=== PATIENT | male | born 1950 | race Caucasian/White ===

== ENCOUNTER 2018-03-29 19:56 | Inpatient (IN) ==
[2018-03-29 21:34] LABS: Basophils % 0.2 % (0.0-0.8); Eosinophils # 0.1 10*3/uL (0.0-0.87); Eosinophils % 0.9 % (0.00-10.9); Hematocrit 38.3 VOL% (42.0-52.0); Hemoglobin 12.7 GM/DL (14.0-18.0); Immature Granulocytes % 0.3 %; Immature Granulocytes Absolute 0.02 #; Lymphocytes # 1.1 10*3/uL (1.4-4.0); Lymphocytes % 16.9 % (21.2-54.2); Mean Corpuscular HGB Conc 33.2 GM/DL (32-36); Mean Corpuscular Hemoglobin 30 PG (27-34); Mean Corpuscular Volume 90.5 FL (87-102); Mean Platelet Volume 10.7 FL (9.6-12.0); Monocytes # 0.6 10*3/uL (0.11-0.8); Monocytes % 8.9 % (1.7-12.7); Neutrophils # 4.7 10*3/uL (1.4-7.4); Neutrophils % 72.8 % (38.7-73.9); Platelet Count 207 T/CUMM (130-400); Red Blood Count 4.23 MC/CUMM (3.8-5.5); Red Cell Distribution Width 14.8 % (9.3-17.3); White Blood Count 6.5 T/CUMM (4-12)
[2018-03-29 21:57] LABS: Albumin 3.4 G/DL (3.4-5.0); Calcium 8.5 MG/DL (8.5-10.1); Osmolality,Calculated 292.1 MOS/KG (273-304); Potassium 4.4 MMOL/L (3.5-5.1); Total Protein 6.7 G/DL (6.4-8.3)
[2018-03-29] MEDS ORDERED: METOPROLOL TARTRATE 5 MG/5 ML VIAL IV STA (22:44)
[2018-03-29] MEDS ORDERED: ACETAMINOPHEN 500 MG TABLET PO STA (22:44)
[2018-03-29 23:25] LABS: INR 1.1; PT Patient Result 11.2 SECS
[2018-03-29] MEDS ORDERED: ASPIRIN CHEW 81 MG TABLET PO STA (23:49)
[2018-03-29] MEDS ORDERED: ONDANSETRON 4 MG/2 ML VIAL IV ONE (23:49)
[2018-03-29] MEDS ORDERED: MORPHINE 4 MG/1 ML VIAL IV STA (23:49)
[2018-03-30] MEDS ORDERED: HEPARIN DRIP 25,000 UNITS/500 ML PREMIX IV SCH (03:00)
[2018-03-30] MEDS ORDERED: MAGNESIUM SULF RIDER 4 GM in PREMIX 1 EACH IV PRN (03:10)
[2018-03-30] MEDS ORDERED: ONDANSETRON 4 MG/2 ML VIAL IV PRN (03:10)
[2018-03-30 03:44] LABS: Partial Thromboplastin Time 27.3 SECS (0-40)
[2018-03-30] MEDS: HEPARIN DRIP 25,000 UNITS/500 ML PREMIX IV SCH ×2 (04:06→20:22)
[2018-03-30] MEDS: MAGNESIUM SULF RIDER 2 GM in PREMIX 1 EACH IV PRN (04:13)
[2018-03-30] MEDS ORDERED: HEPARIN 5,000 UNIT/1 ML VIAL IV ONE (09:00)
[2018-03-30] MEDS ORDERED: MORPHINE 4 MG/1 ML VIAL IM PRN (11:07)
[2018-03-30] MEDS: MORPHINE 4 MG/1 ML VIAL IV PRN ×3 (11:48→20:22)
[2018-03-30] MEDS: CARVEDILOL 6.25 MG TABLET PO SCH ×2 (12:31→16:18)
[2018-03-30] MEDS: ISOSORBIDE MONONITRATE 30 MG TABLET PO SCH (12:31)
[2018-03-30] MEDS: CLOPIDOGREL 75 MG TABLET PO SCH (12:31)
[2018-03-30] MEDS ORDERED: cefTRIAXone 1,000 MG VIAL IV SCH (13:30)
[2018-03-30] MEDS: cefTRIAXone 1,000 MG in SYRINGE 1 EACH IV SCH (13:46)
[2018-03-30] MEDS: TAMSULOSIN 0.4 MG CAPSULE PO SCH ×2 (13:47→20:21)
[2018-03-30] MEDS: PREGABALIN 100 MG CAPSULE PO SCH ×2 (13:47→20:21)
[2018-03-30] MEDS ORDERED: PREGABALIN 100 MG CAPSULE PO SCH (15:00)
[2018-03-30] MEDS: BENZONATATE 100 MG CAPSULE PO SCH ×2 (16:09→20:22)
[2018-03-30] MEDS: INSULIN LISPRO 100 UNIT/ML SUBCUT SCH ×2 (16:17→20:21)
[2018-03-30] MEDS: QUEtiapine XR 50 MG TABLET PO SCH (20:21)
[2018-03-30] MEDS: DULoxetine 30 MG CAPSULE PO SCH (20:21)
[2018-03-31 03:59] LABS: Apearance,Urine CLEAR (Clear); Bilirubin,Urine Negative (Negative); Blood, Urine Negative (Negative); Glucose,Urine (UA) >=500 mg/dL (Negative); Ketones,Urine 5 mg/dL (Negative); Mucus,Urine Few /LPF (Occasional); Nitrite,Urine Negative (Negative); Protein,Urine 30 MG/DL; RBC,Urine <1 /HPF (0-4); Urine Color Yellow (Yellow); Urine Specific Gravity 1.028 (1.001-1.035); Urine Urobilinogen < 2.0 EU/DL (0.2-1.0); WBC,Urine 1 /HPF (0-6)
[2018-03-31] MEDS: HEPARIN DRIP 25,000 UNITS/500 ML PREMIX IV SCH ×2 (04:27→12:55)
[2018-03-31 06:03] LABS: Basophils % 0.4 % (0.0-0.8); Eosinophils # 0.1 10*3/uL (0.0-0.87); Eosinophils % 1.8 % (0.00-10.9); Hematocrit 34.8 VOL% (42.0-52.0); Hemoglobin 11.4 GM/DL (14.0-18.0); Immature Granulocytes % 0.4 %; Immature Granulocytes Absolute 0.02 #; Lymphocytes # 1.4 10*3/uL (1.4-4.0); Lymphocytes % 24.8 % (21.2-54.2); Mean Corpuscular HGB Conc 32.8 GM/DL (32-36); Mean Corpuscular Hemoglobin 30 PG (27-34); Mean Corpuscular Volume 90.9 FL (87-102); Mean Platelet Volume 10.3 FL (9.6-12.0); Monocytes # 0.5 10*3/uL (0.11-0.8); Monocytes % 9.4 % (1.7-12.7); Neutrophils # 3.5 10*3/uL (1.4-7.4); Neutrophils % 63.2 % (38.7-73.9); Platelet Count 185 T/CUMM (130-400); Red Blood Count 3.83 MC/CUMM (3.8-5.5); Red Cell Distribution Width 15.1 % (9.3-17.3); White Blood Count 5.6 T/CUMM (4-12)
[2018-03-31 06:39] LABS: Albumin 2.6 G/DL (3.4-5.0); Bilirubin,Total 0.9 MG/DL (0.2-1.0); Calcium 8.3 MG/DL (8.5-10.1); Osmolality,Calculated 285.4 MOS/KG (273-304); Potassium 3.5 MMOL/L (3.5-5.1); Risk Ratio 2.86; VLDL CHOLESTEROL 16.8 MG/DL
[2018-03-31] MEDS: INSULIN LISPRO 100 UNIT/ML SUBCUT SCH ×4 (07:40→20:14)
[2018-03-31] MEDS: ESCITALOPRAM 10 MG TABLET PO SCH (08:52)
[2018-03-31] MEDS: CLOPIDOGREL 75 MG TABLET PO SCH (08:52)
[2018-03-31] MEDS: TAMSULOSIN 0.4 MG CAPSULE PO SCH ×2 (08:52→20:15)
[2018-03-31] MEDS: ATORVASTATIN 80 MG TABLET PO SCH (08:52)
[2018-03-31] MEDS: DULoxetine 30 MG CAPSULE PO SCH ×2 (08:52→20:15)
[2018-03-31] MEDS: BENZONATATE 100 MG CAPSULE PO SCH ×3 (08:53→20:15)
[2018-03-31] MEDS: ISOSORBIDE MONONITRATE 30 MG TABLET PO SCH (08:53)
[2018-03-31] MEDS: CARVEDILOL 6.25 MG TABLET PO SCH ×2 (08:53→16:51)
[2018-03-31] MEDS: PREGABALIN 100 MG CAPSULE PO SCH ×2 (09:12→20:15)
[2018-03-31] MEDS ORDERED: ASPIRIN CHEW 81 MG TABLET PO ONE (11:31)
[2018-03-31] MEDS: cefTRIAXone 1,000 MG in SYRINGE 1 EACH IV SCH (12:55)
[2018-03-31] MEDS: QUEtiapine XR 50 MG TABLET PO SCH (20:15)
[2018-04-01 00:41] LABS: Basophils % 0.2 % (0.0-0.8); Eosinophils # 0.1 10*3/uL (0.0-0.87); Eosinophils % 3.1 % (0.00-10.9); Hematocrit 34.3 VOL% (42.0-52.0); Hemoglobin 11.3 GM/DL (14.0-18.0); Immature Granulocytes % 0.2 %; Immature Granulocytes Absolute 0.01 #; Lymphocytes # 1.2 10*3/uL (1.4-4.0); Lymphocytes % 29.4 % (21.2-54.2); Mean Corpuscular HGB Conc 32.9 GM/DL (32-36); Mean Corpuscular Hemoglobin 30 PG (27-34); Mean Platelet Volume 9.9 FL (9.6-12.0); Monocytes # 0.4 10*3/uL (0.11-0.8); Monocytes % 10.6 % (1.7-12.7); Neutrophils # 2.3 10*3/uL (1.4-7.4); Neutrophils % 56.5 % (38.7-73.9); Platelet Count 176 T/CUMM (130-400); Red Blood Count 3.81 MC/CUMM (3.8-5.5); Red Cell Distribution Width 14.9 % (9.3-17.3); White Blood Count 4.2 T/CUMM (4-12)
[2018-04-01 01:04] LABS: Calcium 8.3 MG/DL (8.5-10.1); Osmolality,Calculated 287.3 MOS/KG (273-304); Potassium 3.6 MMOL/L (3.5-5.1)
[2018-04-01] MEDS: HEPARIN DRIP 25,000 UNITS/500 ML PREMIX IV SCH (03:47)
[2018-04-01] MEDS ORDERED: diphenhydrAMINE CAP 50 MG CAPSULE PO ONE (08:00)
[2018-04-01] MEDS ORDERED: DIAZEPAM 5 MG TABLET PO ONE (08:00)
[2018-04-01] MEDS ORDERED: DIAZEPAM 5 MG TABLET ONE (08:02)
[2018-04-01] MEDS ORDERED: diphenhydrAMINE CAP 50 MG CAPSULE ONE (08:02)
[2018-04-01] MEDS ORDERED: HEPARIN/NACL 0.9% 2 UNITS/ML 1,000 ML IV ONE (08:07)
[2018-04-01] MEDS ORDERED: POTASSIUM CHLORIDE RIDER 10 MEQ in PREMIX 1 EACH IV PRN (08:13)
[2018-04-01] MEDS ORDERED: MAGNESIUM SULF RIDER 2 GM in PREMIX 1 EACH IV PRN (08:13)
[2018-04-01] MEDS: INSULIN LISPRO 100 UNIT/ML SUBCUT SCH ×4 (08:20→20:28)
[2018-04-01] MEDS ORDERED: LIDOCAINE 1%/EPI INJ 20 ML VIAL ONE (08:20)
[2018-04-01] MEDS: CARVEDILOL 6.25 MG TABLET PO SCH ×2 (08:30→18:56)
[2018-04-01] MEDS: CLOPIDOGREL 75 MG TABLET PO SCH (08:30)
[2018-04-01] MEDS: ISOSORBIDE MONONITRATE 30 MG TABLET PO SCH (08:30)
[2018-04-01] MEDS ORDERED: DEXTROSE 5% NACL 0.45% 1,000 ML IV SCH (08:30)
[2018-04-01] MEDS: ASPIRIN CHEW 81 MG TABLET PO SCH (08:30)
[2018-04-01] MEDS: TAMSULOSIN 0.4 MG CAPSULE PO SCH ×2 (12:12→20:28)
[2018-04-01] MEDS: BENZONATATE 100 MG CAPSULE PO SCH ×3 (12:12→20:28)
[2018-04-01] MEDS: ESCITALOPRAM 10 MG TABLET PO SCH (12:13)
[2018-04-01] MEDS: ATORVASTATIN 80 MG TABLET PO SCH (12:13)
[2018-04-01] MEDS: PREGABALIN 100 MG CAPSULE PO SCH ×2 (12:13→20:28)
[2018-04-01] MEDS: DULoxetine 30 MG CAPSULE PO SCH ×2 (12:13→20:28)
[2018-04-01] MEDS: cefTRIAXone 1,000 MG in SYRINGE 1 EACH IV SCH (13:59)
[2018-04-01] MEDS: QUEtiapine XR 50 MG TABLET PO SCH (20:28)
[2018-04-01] MEDS: MORPHINE 4 MG/1 ML VIAL IV PRN (21:18)
[2018-04-02 04:12] LABS: Basophils % 0.2 % (0.0-0.8); Eosinophils # 0.2 10*3/uL (0.0-0.87); Eosinophils % 3.4 % (0.00-10.9); Hematocrit 33.9 VOL% (42.0-52.0); Hemoglobin 11.1 GM/DL (14.0-18.0); Immature Granulocytes % 0.2 %; Immature Granulocytes Absolute 0.01 #; Lymphocytes # 1.4 10*3/uL (1.4-4.0); Lymphocytes % 28.5 % (21.2-54.2); Mean Corpuscular HGB Conc 32.7 GM/DL (32-36); Mean Corpuscular Hemoglobin 29 PG (27-34); Mean Corpuscular Volume 89.9 FL (87-102); Mean Platelet Volume 10.4 FL (9.6-12.0); Monocytes # 0.4 10*3/uL (0.11-0.8); Monocytes % 8.2 % (1.7-12.7); Neutrophils # 2.8 10*3/uL (1.4-7.4); Neutrophils % 59.5 % (38.7-73.9); Platelet Count 195 T/CUMM (130-400); Red Blood Count 3.77 MC/CUMM (3.8-5.5); Red Cell Distribution Width 14.8 % (9.3-17.3); White Blood Count 4.7 T/CUMM (4-12)
[2018-04-02 04:41] LABS: Calcium 8.6 MG/DL (8.5-10.1); Osmolality,Calculated 286.1 MOS/KG (273-304); Potassium 3.4 MMOL/L (3.5-5.1)
[2018-04-02 04:45] LABS: Troponin I 0.669 NG/ML (0.00-0.045)
[2018-04-02] MEDS: MAGNESIUM SULF RIDER 2 GM in PREMIX 1 EACH IV PRN (08:35)
[2018-04-02] MEDS: INSULIN LISPRO 100 UNIT/ML SUBCUT SCH ×4 (08:35→20:50)
[2018-04-02] MEDS ORDERED: NITROGLYCERIN SL 0.4 MG TABLET SL PRN (08:42)
[2018-04-02] MEDS: CARVEDILOL 6.25 MG TABLET PO SCH (09:15)
[2018-04-02] MEDS: RANOLAZINE 500 MG TABLET PO SCH ×2 (09:23→20:51)
[2018-04-02] MEDS: ASPIRIN CHEW 81 MG TABLET PO SCH (09:23)
[2018-04-02] MEDS: PREGABALIN 100 MG CAPSULE PO SCH ×2 (09:23→20:51)
[2018-04-02] MEDS: ESCITALOPRAM 10 MG TABLET PO SCH (09:23)
[2018-04-02] MEDS: ISOSORBIDE MONONITRATE 30 MG TABLET PO SCH (09:23)
[2018-04-02] MEDS: ATORVASTATIN 80 MG TABLET PO SCH (09:23)
[2018-04-02] MEDS: DULoxetine 30 MG CAPSULE PO SCH ×2 (09:23→20:51)
[2018-04-02] MEDS: TAMSULOSIN 0.4 MG CAPSULE PO SCH ×2 (09:23→20:51)
[2018-04-02] MEDS: TICAGRELOR 90 MG TABLET PO SCH ×2 (09:24→20:51)
[2018-04-02] MEDS: BENZONATATE 100 MG CAPSULE PO SCH ×3 (09:24→20:51)
[2018-04-02] MEDS: POTASSIUM CHLORIDE 20 MEQ TABLET PO PRN ×3 (09:56→14:46)
[2018-04-02] MEDS: POTASSIUM CHLORIDE 20 MEQ TABLET PO SCH (09:56)
[2018-04-02] MEDS ORDERED: CARVEDILOL 25 MG TABLET PO ONE (10:00)
[2018-04-02] MEDS: cefTRIAXone 1,000 MG in SYRINGE 1 EACH IV SCH (14:45)
[2018-04-02] MEDS: CARVEDILOL 12.5 MG TABLET PO SCH (16:33)
[2018-04-02] MEDS: INSULIN GLARGINE 100 UNIT/ML SUBCUT SCH (20:49)
[2018-04-02] MEDS: QUEtiapine XR 50 MG TABLET PO SCH (20:54)
[2018-04-02] MEDS: MORPHINE 4 MG/1 ML VIAL IV PRN (23:55)
[2018-04-03 05:02] LABS: Basophils % 0.4 % (0.0-0.8); Eosinophils # 0.1 10*3/uL (0.0-0.87); Eosinophils % 2.2 % (0.00-10.9); Hemoglobin 11.5 GM/DL (14.0-18.0); Immature Granulocytes % 0.2 %; Immature Granulocytes Absolute 0.01 #; Lymphocytes # 1.6 10*3/uL (1.4-4.0); Lymphocytes % 29.8 % (21.2-54.2); Mean Corpuscular HGB Conc 31.9 GM/DL (32-36); Mean Corpuscular Hemoglobin 29 PG (27-34); Mean Corpuscular Volume 91.4 FL (87-102); Mean Platelet Volume 10.2 FL (9.6-12.0); Monocytes # 0.4 10*3/uL (0.11-0.8); Monocytes % 7.4 % (1.7-12.7); Neutrophils # 3.2 10*3/uL (1.4-7.4); Platelet Count 207 T/CUMM (130-400); Red Blood Count 3.94 MC/CUMM (3.8-5.5); Red Cell Distribution Width 14.6 % (9.3-17.3); White Blood Count 5.4 T/CUMM (4-12)
[2018-04-03 05:27] LABS: Calcium 8.6 MG/DL (8.5-10.1); Potassium 3.9 MMOL/L (3.5-5.1)
[2018-04-03] MEDS: INSULIN LISPRO 100 UNIT/ML SUBCUT SCH ×2 (08:16→11:12)
[2018-04-03] MEDS: INSULIN GLARGINE 100 UNIT/ML SUBCUT SCH (08:43)
[2018-04-03] MEDS: POTASSIUM CHLORIDE 20 MEQ TABLET PO SCH (08:43)
[2018-04-03] MEDS: ESCITALOPRAM 10 MG TABLET PO SCH (08:43)
[2018-04-03] MEDS: PREGABALIN 100 MG CAPSULE PO SCH (08:43)
[2018-04-03] MEDS: RANOLAZINE 500 MG TABLET PO SCH (08:44)
[2018-04-03] MEDS: TAMSULOSIN 0.4 MG CAPSULE PO SCH (08:44)
[2018-04-03] MEDS: ASPIRIN CHEW 81 MG TABLET PO SCH (08:44)
[2018-04-03] MEDS: TICAGRELOR 90 MG TABLET PO SCH (08:44)
[2018-04-03] MEDS: ISOSORBIDE MONONITRATE 30 MG TABLET PO SCH (08:44)
[2018-04-03] MEDS: DULoxetine 30 MG CAPSULE PO SCH (08:44)
[2018-04-03] MEDS: ATORVASTATIN 80 MG TABLET PO SCH (08:44)
[2018-04-03] MEDS: CARVEDILOL 12.5 MG TABLET PO SCH (08:44)
[2018-04-03] MEDS: BENZONATATE 100 MG CAPSULE PO SCH (08:47)
[2018-04-03 09:30] VITALS: BP 151/89
== END 2018-04-03 13:40 | disposition home or self-care (01) | DRG 282 ==
LOC: N.ED 19:56 → N.EDINP 03-30 03:10 → SUATTDRO 03-30 03:10 → N.CC 03-30 03:34
PROVIDERS: ADMIT Family Medicine; ATTEND Family Medicine

== ENCOUNTER 2018-07-05 03:08 | Observation (INO) ==
[2018-07-05] MEDS ORDERED: NITROGLYCERIN 2% OINT 1 INCH/GM PACK TOP STA (03:18)
[2018-07-05] MEDS ORDERED: DEXTROSE 50% 25 GM/50 ML VIAL IV PRN (03:19)
[2018-07-05] MEDS ORDERED: MAGNESIUM SULF RIDER 4 GM in PREMIX 1 EACH IV PRN (03:19)
[2018-07-05] MEDS ORDERED: MAGNESIUM SULF RIDER 2 GM in PREMIX 1 EACH IV PRN (03:19)
[2018-07-05] MEDS ORDERED: GLUCAGON 1 MG VIAL IM PRN (03:19)
[2018-07-05] MEDS ORDERED: NITROGLYCERIN SL 0.4 MG TABLET SL PRN (09:10)
[2018-07-05 09:31] LABS: Basophils % 0.4 % (0.0-0.8); Eosinophils # 0.1 10*3/uL (0.0-0.87); Eosinophils % 1.4 % (0.00-10.9); Hematocrit 39.7 VOL% (42.0-52.0); Hemoglobin 12.3 GM/DL (14.0-18.0); Immature Granulocytes % 0.8 %; Immature Granulocytes Absolute 0.04 #; Lymphocytes # 1.4 10*3/uL (1.4-4.0); Mean Corpuscular Hemoglobin 29 PG (27-34); Mean Corpuscular Volume 92.5 FL (87-102); Monocytes # 0.4 10*3/uL (0.11-0.8); Monocytes % 8.1 % (1.7-12.7); Neutrophils % 60.3 % (38.7-73.9); Platelet Count 185 T/CUMM (130-400); Red Blood Count 4.29 MC/CUMM (3.8-5.5); Red Cell Distribution Width 14.6 % (9.3-17.3)
[2018-07-05] MEDS: ESCITALOPRAM 10 MG TABLET PO SCH (09:46)
[2018-07-05] MEDS: RANOLAZINE 500 MG TABLET PO SCH ×2 (09:46→20:26)
[2018-07-05] MEDS: ASPIRIN CHEW 81 MG TABLET PO SCH (09:46)
[2018-07-05] MEDS: POTASSIUM CHLORIDE 20 MEQ TABLET PO SCH (09:46)
[2018-07-05] MEDS: ATORVASTATIN 80 MG TABLET PO SCH (09:47)
[2018-07-05] MEDS: TICAGRELOR 90 MG TABLET PO SCH ×2 (09:47→20:26)
[2018-07-05 10:00] LABS: Calcium 9.1 MG/DL (8.5-10.1); Osmolality,Calculated 291.1 MOS/KG (273-304); Potassium 4.9 MMOL/L (3.5-5.1)
[2018-07-05 10:04] LABS: Albumin 3.1 G/DL (3.4-5.0); Bilirubin,Total 0.4 MG/DL (0.2-1.0); Osmolality,Calculated 292.1 MOS/KG (273-304); Potassium 4.9 MMOL/L (3.5-5.1); Total Protein 6.7 G/DL (6.4-8.3)
[2018-07-05] MEDS: INSULIN LISPRO 100 UNIT/ML SUBCUT SCH ×3 (12:13→20:27)
[2018-07-05] MEDS: INSULIN GLARGINE 100 UNIT/ML SUBCUT SCH ×2 (13:03→20:27)
[2018-07-05] MEDS: CARVEDILOL 12.5 MG TABLET PO SCH (16:34)
[2018-07-05] MEDS: MAGNESIUM CHLORIDE 64 MG TABLET PO SCH ×3 (18:35→20:26)
[2018-07-05] MEDS: DULoxetine 30 MG CAPSULE PO SCH (20:26)
[2018-07-06 05:10] LABS: Basophils % 0.3 % (0.0-0.8); Eosinophils # 0.1 10*3/uL (0.0-0.87); Eosinophils % 1.5 % (0.00-10.9); Hematocrit 41.5 VOL% (42.0-52.0); Hemoglobin 13.3 GM/DL (14.0-18.0); Immature Granulocytes % 0.3 %; Immature Granulocytes Absolute 0.02 #; Lymphocytes # 1.8 10*3/uL (1.4-4.0); Lymphocytes % 27.6 % (21.2-54.2); Mean Corpuscular Hemoglobin 29 PG (27-34); Mean Platelet Volume 10.2 FL (9.6-12.0); Monocytes # 0.6 10*3/uL (0.11-0.8); Neutrophils % 61.3 % (38.7-73.9); Platelet Count 217 T/CUMM (130-400); Red Blood Count 4.61 MC/CUMM (3.8-5.5); Red Cell Distribution Width 14.6 % (9.3-17.3); White Blood Count 6.6 T/CUMM (4-12)
[2018-07-06 05:29] LABS: Albumin 3.2 G/DL (3.4-5.0); Bilirubin,Total 0.7 MG/DL (0.2-1.0); Calcium 9.1 MG/DL (8.5-10.1); Osmolality,Calculated 284.4 MOS/KG (273-304); Potassium 4.6 MMOL/L (3.5-5.1); Total Protein 6.9 G/DL (6.4-8.3)
[2018-07-06] MEDS: INSULIN LISPRO 100 UNIT/ML SUBCUT SCH ×2 (07:55→12:08)
[2018-07-06] MEDS: INSULIN GLARGINE 100 UNIT/ML SUBCUT SCH (08:01)
[2018-07-06] MEDS: RANOLAZINE 500 MG TABLET PO SCH (08:02)
[2018-07-06] MEDS: POTASSIUM CHLORIDE 20 MEQ TABLET PO SCH (08:02)
[2018-07-06] MEDS: DULoxetine 30 MG CAPSULE PO SCH (08:02)
[2018-07-06] MEDS: ASPIRIN CHEW 81 MG TABLET PO SCH (08:02)
[2018-07-06] MEDS: CARVEDILOL 12.5 MG TABLET PO SCH (08:03)
[2018-07-06] MEDS: MAGNESIUM CHLORIDE 64 MG TABLET PO SCH (08:03)
[2018-07-06] MEDS: ATORVASTATIN 80 MG TABLET PO SCH (08:03)
[2018-07-06] MEDS: TICAGRELOR 90 MG TABLET PO SCH (08:05)
[2018-07-06] MEDS: ESCITALOPRAM 10 MG TABLET PO SCH (08:05)
[2018-07-06] MEDS ORDERED: ISOSORBIDE MONONITRATE 30 MG TABLET PO SCH (09:00)
[2018-07-06 12:19] VITALS: BP 166/81
== END 2018-07-06 04:00 | disposition home or self-care (01) ==
LOC: EDBD → EDUNIT# → N.ED 03:08 → N.EDINP 03:08 → N.ICU 03:48 → N.TELEN 13:25
PROVIDERS: ADMIT Family Medicine; ATTEND Family Medicine

== ENCOUNTER 2019-05-23 20:55 | Inpatient (IN) ==
[2019-05-23] MEDS ORDERED: ENOXAPARIN 100 MG/ML SYRINGE SUBCUT STA (21:22)
[2019-05-23] MEDS ORDERED: ONDANSETRON 4 MG/2 ML VIAL IV STA (21:22)
[2019-05-23] MEDS ORDERED: ALBUTEROL/IPRATROPIUM 3 ML NEB RESP TX STA (21:22)
[2019-05-23] MEDS ORDERED: methylPREDNISolone SOD SUC 125 MG/2 ML VIAL IV STA (21:22)
[2019-05-23 21:40] LABS: Basophils % 0.3 % (0.0-0.8); Eosinophils % 0.6 % (0.00-10.9); Hematocrit 38.5 VOL% (42.0-52.0); Hemoglobin 12.2 GM/DL (14.0-18.0); Immature Granulocytes % 0.5 %; Immature Granulocytes Absolute 0.03 #; Lymphocytes % 16.9 % (21.2-54.2); Mean Corpuscular HGB Conc 31.7 GM/DL (32-36); Mean Corpuscular Volume 90.4 FL (87-102); Mean Platelet Volume 11.1 FL (9.6-12.0); Monocytes % 5.7 % (1.7-12.7); Platelet Count 181 T/CUMM (130-400); Red Blood Count 4.26 MC/CUMM (3.8-5.5); Red Cell Distribution Width 16.6 % (9.3-17.3); White Blood Count 6.2 T/CUMM (4-12)
[2019-05-23 21:47] LABS: PT Patient Result 10.5 SECS (9.6-12.2)
[2019-05-23 22:10] LABS: Albumin 2.9 G/DL (3.4-5.0); Bilirubin,Total 0.9 MG/DL (0.2-1.0); Calcium 8.7 MG/DL (8.5-10.1); Osmolality,Calculated 293.8 MOS/KG (273-304); Total Protein 6.6 G/DL (6.4-8.3)
[2019-05-23] MEDS ORDERED: MAGNESIUM SULF RIDER 2 GM in PREMIX 1 EACH IV PRN (22:20)
[2019-05-23] MEDS ORDERED: MAGNESIUM SULF RIDER 4 GM in PREMIX 1 EACH IV PRN (22:20)
[2019-05-23] MEDS ORDERED: ONDANSETRON 4 MG/2 ML VIAL IV PRN (22:20)
[2019-05-23] MEDS ORDERED: GLUCAGON 1 MG VIAL IM PRN (22:20)
[2019-05-23] MEDS ORDERED: DEXTROSE 50% 25 GM/50 ML VIAL IV PRN (22:20)
[2019-05-23] MEDS ORDERED: POTASSIUM CHLORIDE 20 MEQ TABLET PO PRN (22:20)
[2019-05-24] MEDS: MORPHINE 4 MG/1 ML VIAL IV PRN (00:06)
[2019-05-24] MEDS: ALBUTEROL/IPRATROPIUM 3 ML NEB RESP TX SCH ×7 (00:12→23:29)
[2019-05-24] MEDS: INSULIN REGULAR 100 UNIT/ML SUBCUT SCH ×4 (00:12→17:06)
[2019-05-24] MEDS: methylPREDNISolone SOD SUC 40 MG/1 ML VIAL IV SCH ×3 (06:05→21:01)
[2019-05-24 06:07] LABS: Hematocrit 40.2 VOL% (42.0-52.0); Hemoglobin 12.8 GM/DL (14.0-18.0); Immature Granulocytes % 0.2 %; Immature Granulocytes Absolute 0.01 #; Lymphocytes # 0.6 10*3/uL (1.4-4.0); Lymphocytes % 13.5 % (21.2-54.2); Mean Corpuscular HGB Conc 31.8 GM/DL (32-36); Mean Platelet Volume 11.1 FL (9.6-12.0); Neutrophils % 83.3 % (38.7-73.9); Platelet Count 180 T/CUMM (130-400); Red Blood Count 4.42 MC/CUMM (3.8-5.5); Red Cell Distribution Width 16.2 % (9.3-17.3); White Blood Count 4.4 T/CUMM (4-12)
[2019-05-24 06:52] LABS: Albumin 2.9 G/DL (3.4-5.0); Bilirubin,Total 0.9 MG/DL (0.2-1.0); Calcium 9.3 MG/DL (8.5-10.1); Osmolality,Calculated 292.1 MOS/KG (273-304); Risk Ratio 3.11; Thyroid Stimulating Hormone 1.14 uIU/ml (0.358-3.74); Total Protein 7.8 G/DL (6.4-8.3); VLDL CHOLESTEROL 20.4 MG/DL
[2019-05-24] MEDS ORDERED: BENZONATATE 100 MG CAPSULE PO PRN (08:47)
[2019-05-24] MEDS ORDERED: INSULIN GLARGINE 100 UNIT/ML SUBCUT SCH (09:00)
[2019-05-24] MEDS ORDERED: PANTOPRAZOLE 40 MG TABLET PO SCH (09:00)
[2019-05-24] MEDS ORDERED: OMEPRAZOLE 40 MG PO SCH (09:30)
[2019-05-24] MEDS: INSULIN ASPART PROTAMINE/ASPART 70/30 100 UNIT/ML SUBCUT SCH ×2 (09:45→18:06)
[2019-05-24] MEDS: FUROSEMIDE 40 MG/4 ML VIAL IV SCH ×2 (09:46→16:37)
[2019-05-24] MEDS: glipiZIDE 10 MG TABLET PO SCH ×2 (09:47→20:50)
[2019-05-24] MEDS: PREGABALIN 100 MG CAPSULE PO SCH ×3 (09:47→20:50)
[2019-05-24] MEDS: ENOXAPARIN 120 MG/0.8 ML SYRINGE SUBCUT SCH ×2 (09:47→20:55)
[2019-05-24] MEDS: MAGNESIUM CHLORIDE 64 MG TABLET PO SCH (09:47)
[2019-05-24] MEDS: PANTOPRAZOLE 40 MG TABLET PO SCH (09:47)
[2019-05-24] MEDS: DULoxetine 30 MG CAPSULE PO SCH ×2 (09:47→20:50)
[2019-05-24] MEDS: RANOLAZINE 500 MG TABLET PO SCH ×2 (09:47→20:50)
[2019-05-24] MEDS: ESCITALOPRAM 10 MG TABLET PO SCH (09:48)
[2019-05-24] MEDS: OLANZapine 5 MG TABLET PO SCH (09:48)
[2019-05-24] MEDS: ISOSORBIDE MONONITRATE 30 MG TABLET PO SCH (09:48)
[2019-05-24] MEDS: TAMSULOSIN 0.4 MG CAPSULE PO SCH ×2 (09:48→20:50)
[2019-05-24] MEDS: ASPIRIN CHEW 81 MG TABLET PO SCH (09:48)
[2019-05-24] MEDS: POTASSIUM CHLORIDE 20 MEQ TABLET PO SCH (09:48)
[2019-05-24] MEDS: ATORVASTATIN 80 MG TABLET PO SCH (09:48)
[2019-05-24] MEDS: DONEPEZIL 10 MG TABLET PO SCH ×2 (09:48→20:50)
[2019-05-24] MEDS: cephALEXin 500 MG CAPSULE PO SCH ×2 (09:48→20:50)
[2019-05-24] MEDS: SODIUM CHLORIDE 0.9% 1,000 ML IV SCH ×2 (11:23→22:11)
[2019-05-24 15:14] LABS: CKMB % 4.9 %
[2019-05-24 15:20] LABS: Troponin I 3.7 NG/ML (0.00-0.045)
[2019-05-24] MEDS: carvediloL 12.5 MG TABLET PO SCH (16:37)
[2019-05-24] MEDS: QUEtiapine XR 50 MG TABLET PO SCH (20:50)
[2019-05-24] MEDS: INSULIN GLARGINE 100 UNIT/ML SUBCUT SCH (21:00)
[2019-05-25] MEDS: INSULIN REGULAR 100 UNIT/ML SUBCUT SCH ×4 (01:02→18:15)
[2019-05-25] MEDS: ALBUTEROL/IPRATROPIUM 3 ML NEB RESP TX SCH ×6 (02:53→23:43)
[2019-05-25] MEDS: methylPREDNISolone SOD SUC 40 MG/1 ML VIAL IV SCH ×3 (06:19→21:21)
[2019-05-25] MEDS: glipiZIDE 10 MG TABLET PO SCH ×2 (08:58→20:47)
[2019-05-25] MEDS: ESCITALOPRAM 10 MG TABLET PO SCH (08:59)
[2019-05-25] MEDS: OLANZapine 5 MG TABLET PO SCH (08:59)
[2019-05-25] MEDS: DULoxetine 30 MG CAPSULE PO SCH ×2 (08:59→20:47)
[2019-05-25] MEDS: POTASSIUM CHLORIDE 20 MEQ TABLET PO SCH (08:59)
[2019-05-25] MEDS: carvediloL 12.5 MG TABLET PO SCH ×2 (08:59→16:25)
[2019-05-25] MEDS: PREGABALIN 100 MG CAPSULE PO SCH ×3 (09:00→20:47)
[2019-05-25] MEDS: ISOSORBIDE MONONITRATE 30 MG TABLET PO SCH (09:00)
[2019-05-25] MEDS: cephALEXin 500 MG CAPSULE PO SCH ×2 (09:01→20:46)
[2019-05-25] MEDS: ASPIRIN CHEW 81 MG TABLET PO SCH (09:01)
[2019-05-25] MEDS: MAGNESIUM CHLORIDE 64 MG TABLET PO SCH (09:01)
[2019-05-25] MEDS: RANOLAZINE 500 MG TABLET PO SCH ×2 (09:04→21:21)
[2019-05-25] MEDS: FUROSEMIDE 40 MG/4 ML VIAL IV SCH ×2 (09:04→16:25)
[2019-05-25] MEDS: DONEPEZIL 10 MG TABLET PO SCH ×2 (09:04→20:47)
[2019-05-25] MEDS: ATORVASTATIN 80 MG TABLET PO SCH (09:04)
[2019-05-25] MEDS: TAMSULOSIN 0.4 MG CAPSULE PO SCH ×2 (09:04→20:47)
[2019-05-25] MEDS: INSULIN ASPART PROTAMINE/ASPART 70/30 100 UNIT/ML SUBCUT SCH ×2 (09:05→21:22)
[2019-05-25] MEDS: ENOXAPARIN 120 MG/0.8 ML SYRINGE SUBCUT SCH ×2 (09:05→20:47)
[2019-05-25] MEDS: PANTOPRAZOLE 40 MG TABLET PO SCH (09:05)
[2019-05-25] MEDS ORDERED: POTASSIUM CHLORIDE RIDER 10 MEQ in PREMIX 1 EACH IV PRN (10:09)
[2019-05-25] MEDS ORDERED: MAGNESIUM SULF RIDER 2 GM in PREMIX 1 EACH IV PRN (10:09)
[2019-05-25] MEDS: QUEtiapine XR 50 MG TABLET PO SCH (20:47)
[2019-05-25] MEDS: INSULIN GLARGINE 100 UNIT/ML SUBCUT SCH (21:22)
[2019-05-25] MEDS: SODIUM CHLORIDE 0.9% 1,000 ML IV SCH (23:00)
[2019-05-26] MEDS: INSULIN REGULAR 100 UNIT/ML SUBCUT SCH ×2 (01:08→06:04)
[2019-05-26] MEDS: ALBUTEROL/IPRATROPIUM 3 ML NEB RESP TX SCH ×2 (03:55→07:27)
[2019-05-26 05:11] LABS: Hematocrit 35.7 VOL% (42.0-52.0); Hemoglobin 11.2 GM/DL (14.0-18.0); Immature Granulocytes % 0.3 %; Immature Granulocytes Absolute 0.03 #; Lymphocytes # 0.8 10*3/uL (1.4-4.0); Lymphocytes % 9.3 % (21.2-54.2); Mean Corpuscular HGB Conc 31.4 GM/DL (32-36); Mean Corpuscular Volume 91.5 FL (87-102); Mean Platelet Volume 11.3 FL (9.6-12.0); Monocytes % 5.6 % (1.7-12.7); NRBC # 0.04 10*3/uL; Neutrophils % 84.8 % (38.7-73.9); Platelet Count 200 T/CUMM (130-400); Red Cell Distribution Width 16.2 % (9.3-17.3); White Blood Count 8.7 T/CUMM (4-12)
[2019-05-26 05:33] LABS: Calcium 8.9 MG/DL (8.5-10.1); Osmolality,Calculated 306.4 MOS/KG (273-304)
[2019-05-26] MEDS ORDERED: DIAZEPAM 5 MG TABLET PO ONE (06:00)
[2019-05-26] MEDS ORDERED: diphenhydrAMINE CAP 25 MG CAPSULE PO ONE (06:00)
[2019-05-26] MEDS: methylPREDNISolone SOD SUC 40 MG/1 ML VIAL IV SCH (06:04)
[2019-05-26] MEDS: NITROGLYCERIN SL 0.4 MG TABLET SL PRN ×3 (08:05→08:15)
[2019-05-26] MEDS ORDERED: NITROGLYCERIN 2% OINT 1 INCH/GM PACK TOP SCH (08:10)
[2019-05-26] MEDS: MORPHINE 4 MG/1 ML VIAL IV PRN (08:42)
[2019-05-26] MEDS ORDERED: ENOXAPARIN 120 MG/0.8 ML SYRINGE SUBCUT SCH (09:00)
[2019-05-26 09:04] LABS: CKMB % 8.6 %
[2019-05-26 09:07] LABS: Troponin I 7.63 NG/ML (0.00-0.045)
[2019-05-26] MEDS ORDERED: EPINEPHrine 1 MG/10 ML SYRINGE ONE ×2 (10:28→10:31)
[2019-05-26 10:51] LABS: CKMB % 8.3 %
[2019-05-26 10:52] LABS: Troponin I 7.49 NG/ML (0.00-0.045)
[2019-05-26 15:44] VITALS: BP 0/0
== END 2019-05-26 10:31 | disposition expired ==
LOC: EDBD → EDUNIT# → N.ED 20:55 → N.EDINP 21:30 → N.TELES 22:03 → N.ICU 05-26 10:28
PROVIDERS: ADMIT Internal Medicine Interventional Cardiology; ATTEND Internal Medicine Interventional Cardiology